=== PATIENT | female | born 1980 | race Caucasian/White ===

== ENCOUNTER 2019-02-24 19:39 | Emergency (ER) | payer SELFPAY ==
[~2019-02-24] VITALS: Ht 170.2 cm; Wt 73.7 kg
[~2019-02-24 19:39] MED LIST: SULF1TAB12 PO
[2019-02-24 19:47] VITALS: BP 139/82
--- NOTE | 2019-02-24 19:47 | NUR ---
TO BED # 04 AMBULATORY
[2019-02-24 19:50] VITALS: BP 139/82
--- NOTE | 2019-02-24 20:00 | NUR ---
38/F WITH COMPLAINT VAG BLEEDING, CRAMPING, LOWER BACK PAIN, FOR 5 DAYS . LMP 6.9. NO SIGNS OF DISTRESS. MD NOTIFIED.
--- NOTE | 2019-02-24 20:03 | NUR ---
Dr. Macias examining patient.
--- NOTE | 2019-02-24 20:22 | NUR ---
Ultrasound at bedside.
[2019-02-24 20:44] LABS: BASOPHILS % (AUTO) 0.3 % (0.0-2.0); EOSINOPHILS # (AUTO) 0.1 K/uL (0-0.4); EOSINOPHILS % (AUTO) 0.8 % (0.0-4.0); HEMATOCRIT 38.8 % (36-48); HEMOGLOBIN 13.5 g/dL (12.0-16.0); LYMPHOCYTES # (AUTO) 1.6 K/uL (2.5-16.5); MEAN CORPUSCULAR HEMOGLOBIN 34 pg (27-31); MEAN CORPUSCULAR HGB CONC 35 g/dL (33-37); MONOCYTES # (AUTO) 0.6 K/uL (0.8-1.0); MONOCYTES % (AUTO) 8.7 % (1.7-9.3); NEUTROPHILS # (AUTO) 4.8 K/uL (1.8-7.7); NEUTROPHILS % (AUTO) 68.2 % (42.2-75.2); PLATELET COUNT (AUTO) 287 K/uL (140-450); RED BLOOD CELL COUNT(AUTO) 3.96 MIL/uL (4.20-5.40); WHITE BLOOD COUNT (AUTO) 7.1 K/uL (4.8-10.8)
[2019-02-24 20:58] LABS: APPEARANCE,URINE CLEAR (CLEAR); BILIRUBIN,URINE NEGATIVE (NEGATIVE); BLOOD, URINE TRACE-L (NEGATIVE); COLOR,URINE YELLOW (YELLOW); LEUKOCYTE ESTERASE ,URINE NEGATIVE (NEGATIVE); NITRITE, URINE NEGATIVE (NEGATIVE); PH,URINE 5.5 (5.0-9.0); UGLUCOSE NEGATIVE (NEGATIVE)
[2019-02-24 21:01] LABS: ANION GAP 14.6 (8-16); CARBON DIOXIDE 24.1 mmol/L (21-32); POTASSIUM 3.7 mmol/L (3.5-5.1)
--- NOTE | 2019-02-24 21:20 | NUR ---
PT SAID SHE WILL JUST GET HER SWEATER. SHE WAS OFFERED BLANKET BUT INSISTED TO GET HER SWEATER. CHARGE NURSE AWARE.
--- NOTE | 2019-02-24 21:40 | NUR ---
PATIENT ELOPED FROM FACILITY. DISCHARGE INSTRUCTIONS NOT GIVEN TO PATIENT. DR. ALEJANDRO NOTIFIED.
== END 2019-02-24 21:40 | disposition left against medical advice (07) ==
LOC: MED 19:39
DX: O20.0 Threatened abortion (principal); Z3A.01 Less than 8 weeks gestation of pregnancy; Z79.899 Other long term (current) drug therapy
CPT/HCPCS: 36415; 76817; 80048; 81003; 81025; 84702; 85025; 86900; 86901; 99284; Q0092